=== PATIENT | male | born 1965 | race American Indian/Alaskan Native ===

== ENCOUNTER 2017-06-05 17:46 | Emergency (ER) | payer OTHER ==
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
[2017-06-05] MEDS ORDERED: MOTRIN PO ONE (23:22)
[2017-06-05] MEDS ORDERED: TYLENOL PO ONE (23:23)
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
[2017-06-06 01:15] VITALS: BP 126/84
== END 2017-06-06 01:34 | disposition home or self-care (01) ==
LOC: ED 17:46
DX: M25.511 Pain in right shoulder (principal); M54.5 Low back pain; V89.2XXA Person injured in unspecified motor-vehicle accident, traffic, initial encounter; Y93.9 Activity, unspecified; Y99.9 Unspecified external cause status; Y92.410 Unspecified street and highway as the place of occurrence of the external cause
CPT/HCPCS: 70450; 72100; 72125; 72131

== ENCOUNTER 2017-10-11 15:11 | Outpatient (CLI) | payer OTHER ==
--- NOTE | 2017-10-11 15:51 | XRay Report ---
RIGHT SHOULDER, 3 VIEWS: HISTORY: right shoulder pain. Normal bone mineralization. No acute osseous injury or joint pathology is detected. The soft tissues are unremarkable. IMPRESSION: Right shoulder within normal limits.
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
== END 2017-10-11 15:12 | disposition home or self-care (01) ==
LOC: XRAY 15:11
PROVIDERS: ATTEND Internal Medicine
DX: Z02.71 Encounter for disability determination (principal); M47.897 Other spondylosis, lumbosacral region; M25.511 Pain in right shoulder
CPT/HCPCS: 72100